=== PATIENT | male | born 1980 | race Two or more races ===

== ENCOUNTER 2020-09-23 18:21 | Emergency (ER) | payer SELFPAY ==
[~2020-09-23] VITALS: Ht 177.8 cm; Wt 86.0 kg
[2020-09-23 18:33] VITALS: BP 138/80
[2020-09-23] MEDS ORDERED: MORPHINE SULFATE 4 MG/ML CPJ (NOT FOR IM USE) IV STA (19:05)
[2020-09-23] MEDS ORDERED: KETOROLAC 30MG/ML VIAL IV STA (19:05)
[2020-09-23] MEDS ORDERED: ONDANSETRON HCL 4MG/2ML INJ IV STA (19:05)
[2020-09-23] MEDS ORDERED: SODIUM CHLORIDE 0.9% 1,000 ML IV ONE (19:15)
[2020-09-23] MEDS ORDERED: HYDR-4001 MT (20:17)
[2020-09-23] MEDS ORDERED: IBUP-2028 MT (20:17)
== END 2020-09-23 21:43 | disposition home or self-care (01) ==
LOC: ER 18:21
DX: S89.81XA Other specified injuries of right lower leg, initial encounter (principal); S99.821A Other specified injuries of right foot, initial encounter; W22.8XXA Striking against or struck by other objects, initial encounter; Y93.89 Activity, other specified; Y92.9 Unspecified place or not applicable
CPT/HCPCS: 29515; 73560; 73590; 73610; 73630; 96374; 96375; 99284; J1885; J2270; J2405; J7030; Z7610